=== PATIENT | male | born 1945 | race Caucasian/White ===

== ENCOUNTER 2020-02-21 13:03 | Inpatient (IN) ==
[2020-02-21] MEDS ORDERED: IOPAMIDOL 100 ML BOTTLE IV ONE (13:04)
[2020-02-21] MEDS ORDERED: 0.9 % SODIUM CHLORIDE 1,000 ML IV ONE (13:27)
[2020-02-21] MEDS ORDERED: ACETAMINOPHEN 325 MG TABLET PO ONE (13:27)
[2020-02-21] MEDS ORDERED: BENZONATATE 100 MG CAPSULE PO ONE (13:27)
[2020-02-21] MEDS ORDERED: PIPERACILLIN SODIUM/TAZOBACTAM 3.375 GM in DEXTROSE 5% IN WATER 50 ML IV ONE (13:34)
[2020-02-21] MEDS ORDERED: VANCOMYCIN 2,000 MG in 0.9 % SODIUM CHLORIDE 500 ML IV ONE (13:34)
--- NOTE | 2020-02-21 13:43 | Emergency Department Note ---
HPI General Chief complaint: Shortness of Breath/Dyspnea Stated complaint: UTI, sob, fever Time Seen by Provider: 02/21/20 13:05 Source: patient and family Mode of arrival: ambulatory Limitations: no limitations History of Present Illness HPI Narrative: Narrative: 74-year-old male patient referred to the emergency [facility] with suspected urosepsis. Days had a fever and 9 difficulty urinating since yesterday. However, upon arrival to the emergency department he mentions recent travel to [place] yesterday. His tells me he did the trip straight there and back in 1 day. He has had a nonproductive, dry cough coupled with fever and other symptoms. He has had significant nausea but no vomiting. He has also had significant diarrhea. He denies hematemesis or hematochezia. He denies any known exposure to COVID. He does have history of BPH and has had ongoing issues with urination in the past. He mentions the urge to urinate but is not able to pass urine. Patient does admit to a previous history of DVT in the past. He is also had a PE in the past. He is currently on Coumadin daily. He is unsure what his last INR has been because it is not been checked over the last 2 months. ROS: Admits to headaches. Denies shortness of breath. Denies retrosternal chest pain or palpitations. Admits to generalized weakness. Related Data Home Medications Medication Instructions Recorded Confirmed multivitamin with minerals 1 tab PO QDAY tab 11/06/18 02/21/20 Previous Rx's Medication Instructions Recorded warfarin 5 mg tablet 5 mg PO .COMPLEX #100 tab 05/31/19 tamsulosin 0.4 mg capsule 0.8 mg PO QDAY #180 cap 10/14/19 atorvastatin 20 mg tablet See Rx Instructions .ROUTE 12/12/19 .COMPLEX #90 unknown measurement unit code: tablet furosemide 20 mg tablet 20 mg PO BID #180 tab 12/12/19 metoprolol tartrate 25 mg tablet See Rx Instructions .ROUTE 12/12/19 .COMPLEX #180 tab potassium chloride 10 mEq 10 meq PO QDAY #90 cap 12/12/19 capsule,extended release Allergies Allergy/AdvReac Type Severity Reaction Status Date / Time naproxen [From Aleve] Allergy Unknown Unknoen Verified 02/21/20 13:03 Review of Systems ROS ROS Narrative: Narrative: PFSH Narrative Patient History Narrative: Narrative: Medical/Surgical/Family History All Active Problems (Updated 02/21/20 @ 19:03 by Hansel Valencia PA-C) Sepsis (Acute) UTI (urinary tract infection) (Acute) Fever (Acute) Weakness (Acute) UTI (urinary tract infection) (Acute) Bronchitis, acute (Chronic) Stasis ulcer (Chronic) DVT (deep venous thrombosis) (Chronic) Bilateral lower extremity edema (Chronic) Dizziness (Chronic) History of cigarette smoking (Chronic) Right thyroid nodule (Chronic) Fatigue (Chronic) Weight gain (Chronic) Chronic bronchitis (Chronic) 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) Varicose veins of right lower extremity with ulcer of thigh (Chronic) Lipodermatosclerosis (Chronic) History of Coumadin therapy (Chronic) Testosterone deficiency (Chronic) Nocturia (Chronic) Incomplete emptying of bladder (Chronic) Urinary incontinence (Chronic) Urinary frequency (Chronic) History of knee replacement (Chronic) Stomach ulcer (Chronic ~1974) History of blood clots (Chronic ~2005) Hyperlipidemia (Chronic) Erectile dysfunction (Chronic) Stasis dermatitis (Chronic) Pulmonary embolism (Chronic) Low testosterone (Chronic) Hypertension (Chronic ~2015) Lower leg edema (Chronic ~2009) Post-void dribbling (Chronic) BPH (benign prostatic hyperplasia) (Chronic) Medical History Bilateral lower extremity edema (Chronic) BPH (benign prostatic hyperplasia) (Chronic) Bronchitis, acute (Chronic) Chronic bronchitis (Chronic) Dizziness (Chronic) DVT (deep venous thrombosis) (Chronic) Erectile dysfunction (Chronic) Fatigue (Chronic) Fever (Acute) History of blood clots (Chronic ~2005) History of cigarette smoking (Chronic) History of Coumadin therapy (Chronic) Hyperlipidemia (Chronic) Hypertension (Chronic ~2015) Incomplete emptying of bladder (Chronic) Lipodermatosclerosis (Chronic) Low testosterone (Chronic) Lower leg edema (Chronic ~2009) Nocturia (Chronic) Post-void dribbling (Chronic) Pulmonary embolism (Chronic) Right thyroid nodule (Chronic) Stasis dermatitis (Chronic) Stasis ulcer (Chronic) Stomach ulcer (Chronic ~1974) Testosterone deficiency (Chronic) Urinary frequency (Chronic) Urinary incontinence (Chronic) UTI (urinary tract infection) (Acute) 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 He is in no acute respiratory distress. No nasal flaring. No accessory muscle use. He is speaking in full complete sentences.) Head Head: atraumatic and normocephalic Eye Eye: Present normal appearance, PERRL and EOMI; Absent scleral icterus and conjunctival injection ENT ENT: Present normal oropharynx and mucous membranes moist Neck Neck: Present trachea midline; Absent lymphadenopathy Chest Chest: Present symmetric chest wall rise Respiratory Respiratory: Present normal lung sounds bilaterally; Absent respiratory distress, wheezes, stridor, accessory muscle use and prolonged expiratory phase Cardiovascular Cardiovascular: Present regular rate and normal rhythm; Absent systolic murmur and diastolic murmur Adbominal Abdominal: Present soft; Absent distention, tenderness, guarding, rebound, rigidity, organomegaly and mass Extremities Extremities: Present full ROM, normal capillary refill and other (Patient is currently wearing compression socks.); Absent normal inspection, tenderness and pedal edema (No pitting edema identified.) Back Back: Absent CVA tenderness (R) and CVA tenderness (L) Neurological Neurological: Present alert and oriented X3 Psychiatric Psychiatric: Present normal affect and normal mood Skin Skin: Present warm, dry and normal color Course Course Course Narrative: Patient has symptoms of both possible urosepsis as well as possible COVID. We are going to order a bladder scan looking for retained urine. Based on the residual amount of retained urine will place a catheter. Patient is going to swab COVID. Single view chest x-ray was ordered. We are going to get screening blood work including getting a PT/INR. Patient meets SIRS criteria we are going to start both vancomycin 2000 mg and Zosyn 3.337 g IV now. I am going to treat his temperature with 975 mg of acetaminophen. Were also going to give him benzonatate 20 mg p.o. for his cough. Reevaluation(s) Reevaluation #1: A review of the patient's diagnostics show the following: CBC WBC 21.2, RBC 4.65, hemoglobin 13.5, hematocrit 41.8, platelets 163. PT 35.3, INR 3.5. Lactic acid 1.0. CMP chloride 95, creatinine 1.3, glucose 137, total bilirubin 1.1, all others normal limits. Procalcitonin 2.86. UA showing orange cloudy urine with specific gravity 1.025 and pH 5.5, positive proteinuria, positive nitrites, trace leukocyte Estrace, trace RBC. Portable chest x-ray read as a small region of either atelectasis or infiltrate developing in the lingular region. Upon reevaluation patient continues to lay semirecumbent on the emergency room gurney and is still feeling comfortable. After reviewing all the data I disc ussed these findings with my collaborating physician (Dr. Abdullahi). At this time he appears to have urosepsis. Dr. Abdullahi did recommend a CT scan of the patient's abdomen/pelvis with contrast to help rule out any other intra- abdominal pathology that may be causing his symptoms. Time: 15:44 Reevaluation #2: Upon reevaluation patient is resting comfortably on emergency room gurney. CT scan results did show a moderately large prostate and the development of hepatic cysts but no other acute findings. Afterward, I reached out to our hospitalist (Dr. Roque) and discussed the case with him. At this time Dr. Roque has consented to admit the patient to our facility for urosepsis. Time: 19:00 Vital Signs Vital signs: Vital Signs Temperature 103.5 F H 02/21/20 13:03 Pulse Rate 95 H 02/21/20 13:03 Respiratory Rate 24 H 02/21/20 13:03 Blood Pressure 133/69 02/21/20 13:03 Pulse Oximetry (%) 93 02/21/20 13:03 Temperature 100.5 F H 02/21/20 21:03 Pulse Rate 75 02/21/20 21:03 Respiratory Rate 20 07/31/20 21:03 Blood Pressure 153/66 02/21/20 21:03 Pulse Oximetry (%) 90 02/21/20 21:03 [facility] MDM Narrative Medical decision making narrative: Narrative: Lab Data Lab results reviewed: Yes I reviewed the patient's lab results. Result diagrams: 02/21/20 13:48 02/21/20 13:48 Labs: Lab Results 02/21/20 02/21/20 02/21/20 Range/Units 13:48 13:48 13:48 WBC 21.2 H (4.50-11.00) K/mcL RBC 4.65 (4.63-6.08) M/mcL Hgb 13.5 L (13.7-17.5) g/dL Hct 41.8 (40.1-51.0) % MCV 89.9 (80.0-100.0) fL MCH 29.0 (26.0-34.0) pg MCHC 32.3 (31.0-36.0) g/dL RDW 15.0 H (11.5-14.5) % Plt Count 163 (140-440) K/mcL MPV 11.8 H (7.4-10.4) fL Gran % 89.4 H (38.0-78.0) % Lymph % (Auto) 3.4 L (15.5-49.0) % [place] % (Auto) 6.5 (1.0-12.0) % Eos % (Auto) 0.6 (0.0-7.0) % Baso % (Auto) 0.1 (0.0-2.0) % Gran # 18.91 H (1.80-8.00) K/mcL Lymph # (Auto) 0.73 L (1.50-4.80) K/mcL [place] # (Auto) 1.38 H (0.10-0.90) K/mcL Eos # (Auto) 0.12 (0.00-0.70) K/mcL Baso # (Auto) 0.03 (0.00-0.30) K/mcL PT 35.3 H (11.9-14.5) sec INR 3.5 H (0.9-1.1) VBG Lactic Acid (0.5-2.0) mmol/L Sodium 134 (133-145) mmol/L Potassium 3.8 (3.3-5.1) mmol/L Chloride 95 L (96-108) mmol/L Carbon Dioxide 28 (22-30) mmol/L Anion Gap 11.0 (8-16) BUN 19 (8-23) mg/dl Creatinine 1.3 H (0.7-1.2) mg/dl GFR Calculation 55 Glucose 137 H (70-105) mg/dL Calcium 8.9 (8.6-10.4) mg/dl Total Bilirubin 1.1 H (0.0-1.0) mg/dL AST 20 (0-37) U/l ALT 21 (0-40) U/l Alkaline Phosphatase 102 (39-117) U/L Total Protein 7.3 (5.9-8.4) gm/dL Albumin 3.6 (3.2-5.2) gm/dL Globulin 3.7 (2.2-3.7) gm/dL Albumin/Globulin Ratio 1.0 (1.0-2.3) Lipase (7-60) U/L Procalcitonin (<0.10) ng/mL Urine Color Urine Appearance Urine pH (5.0-9.0) Ur Specific [place] (1.000-1.035) Urine Protein (NEG) mg/dL Urine Glucose (UA) (NEG) mg/dL Urine Ketones (NEG) mg/dL Urine Occult Blood (<0.03) mg/dL Urine Nitrate (NEG) Urine Bilirubin (NEG) mg/dL Urine Urobilinogen (NEG) mg/dL Ur Leukocyte Esterase (NEG) /uL Urine RBC (0-1) /hpf Urine WBC (0-4) /hpf Ur Squamous Epith Cells (0-4) /hpf Urine Bacteria (0) /hpf Urine Mucus (0) /hpf Ur Culture Indicated? 02/21/20 02/21/20 02/21/20 Range/Units 13:48 13:48 13:48 WBC (4.50-11.00) K/mcL RBC (4.63-6.08) M/mcL Hgb (13.7-17.5) g/dL Hct (40.1-51.0) % MCV (80.0-100.0) fL MCH (26.0-34.0) pg MCHC (31.0-36.0) g/dL RDW (11.5-14.5) % Plt Count (140-440) K/mcL MPV (7.4-10.4) fL Gran % (38.0-78.0) % Lymph % (Auto) (15.5-49.0) % [place] % (Auto) (1.0-12.0) % Eos % (Auto) (0.0-7.0) % Baso % (Auto) (0.0-2.0) % Gran # (1.80-8.00) K/mcL Lymph # (Auto) (1.50-4.80) K/mcL [place] # (Auto) (0.10-0.90) K/mcL Eos # (Auto) (0.00-0.70) K/mcL Baso # (Auto) (0.00-0.30) K/mcL PT (11.9-14.5) sec INR (0.9-1.1) VBG Lactic Acid 1.0 (0.5-2.0) mmol/L Sodium (133-145) mmol/L Potassium (3.3-5.1) mmol/L Chloride (96-108) mmol/L Carbon Dioxide (22-30) mmol/L Anion Gap (8-16) BUN (8-23) mg/dl Creatinine (0.7-1.2) mg/dl GFR Calculation Glucose (70-105) mg/dL Calcium (8.6-10.4) mg/dl Total Bilirubin (0.0-1.0) mg/dL AST (0-37) U/l ALT (0-40) U/l Alkaline Phosphatase (39-117) U/L Total Protein (5.9-8.4) gm/dL Albumin (3.2-5.2) gm/dL Globulin (2.2-3.7) gm/dL Albumin/Globulin Ratio (1.0-2.3) Lipase 14 (7-60) U/L Procalcitonin 2.86 (<0.10) ng/mL Urine Color Urine Appearance Urine pH (5.0-9.0) Ur Specific [place] (1.000-1.035) Urine Protein (NEG) mg/dL Urine Glucose (UA) (NEG) mg/dL Urine Ketones (NEG) mg/dL Urine Occult Blood (<0.03) mg/dL Urine Nitrate (NEG) Urine Bilirubin (NEG) mg/dL Urine Urobilinogen (NEG) mg/dL Ur Leukocyte Esterase (NEG) /uL Urine RBC (0-1) /hpf Urine WBC (0-4) /hpf Ur Squamous Epith Cells (0-4) /hpf Urine Bacteria (0) /hpf Urine Mucus (0) /hpf Ur Culture Indicated? 02/21/20 Range/Units 18:00 WBC (4.50-11.00) K/mcL RBC (4.63-6.08) M/mcL Hgb (13.7-17.5) g/dL Hct (40.1-51.0) % MCV (80.0-100.0) fL MCH (26.0-34.0) pg MCHC (31.0-36.0) g/dL RDW (11.5-14.5) % Plt Count (140-440) K/mcL MPV (7.4-10.4) fL Gran % (38.0-78.0) % Lymph % (Auto) (15.5-49.0) % [place] % (Auto) (1.0-12.0) % Eos % (Auto) (0.0-7.0) % Baso % (Auto) (0.0-2.0) % Gran # (1.80-8.00) K/mcL Lymph # (Auto) (1.50-4.80) K/mcL [place] # (Auto) (0.10-0.90) K/mcL Eos # (Auto) (0.00-0.70) K/mcL Baso # (Auto) (0.00-0.30) K/mcL PT (11.9-14.5) sec INR (0.9-1.1) VBG Lactic Acid (0.5-2.0) mmol/L Sodium (133-145) mmol/L Potassium (3.3-5.1) mmol/L Chloride (96-108) mmol/L Carbon Dioxide (22-30) mmol/L Anion Gap (8-16) BUN (8-23) mg/dl Creatinine (0.7-1.2) mg/dl GFR Calculation Glucose (70-105) mg/dL Calcium (8.6-10.4) mg/dl Total Bilirubin (0.0-1.0) mg/dL AST (0-37) U/l ALT (0-40) U/l Alkaline Phosphatase (39-117) U/L Total Protein (5.9-8.4) gm/dL Albumin (3.2-5.2) gm/dL Globulin (2.2-3.7) gm/dL Albumin/Globulin Ratio (1.0-2.3) Lipase (7-60) U/L Procalcitonin (<0.10) ng/mL Urine Color Yellow Urine Appearance Hazy Urine pH 6.0 (5.0-9.0) Ur Specific [place] 1.026 (1.000-1.035) Urine Protein 30 A (NEG) mg/dL Urine Glucose (UA) Negative (NEG) mg/dL Urine Ketones Neg (NEG) mg/dL Urine Occult Blood 0.03 A (<0.03) mg/dL Urine Nitrate Pos A (NEG) Urine Bilirubin Neg (NEG) mg/dL Urine Urobilinogen 4.0 A (NEG) mg/dL Ur Leukocyte Esterase 250 A (NEG) /uL Urine RBC 1 (0-1) /hpf Urine WBC 53 H (0-4) /hpf Ur Squamous Epith Cells 1 (0-4) /hpf Urine Bacteria Many A (0) /hpf Urine Mucus Mod (0) /hpf Ur Culture Indicated? Yes Radiology Data Radiology results reviewed: Yes I reviewed the patient's radiology results. Radiology results narrative: Ordering Physician: Hansel Valencia PA-C Date of Service: 02/21/20 Procedure(s): XR chest 1V portable Accession Number(s): [id number] CLINICAL INFORMATION: Fever, cough, mild short of breath x24 hours. COMPARISON: Chest CT 12/12/2018. FINDINGS: Small lingular infiltrate or atelectasis developing. Heart size, mediastinum and pulmonary vessels are normal. No effusions IMPRESSION: Small region of atelectasis or infiltrate in the lingular region - new. Ordering Physician: Hansel Valencia PA-C Date of Service: 02/21/20 Procedure(s): CT abdomen pelvis w con Accession Number(s): [id number] CLINICAL INFORMATION: Fever elevated white blood cell count nausea and diarrhea COMPARISON: Chest CT 12/12/2018 TECHNIQUE: Following enteric contrast, 80 cc of Isovue-370 were injected intravenously, and 60 seconds later, 0.625 mm helical slices were obtained from the mid heart through the subtrochanteric regions. Following reconstruction, 2.5 mm sagittal, coronal and axial reformatted images were processed and reviewed at bone, lung and soft tissue windows. Five minutes later, 0.625 mm helical slices were obtained from the mid heart through the kidneys and viewed at soft tissue windows.The exam was performed using radiation dose optimization techniques including, but not limited to, automated exposure control, adjustment of the mA and/or kV according to patient size and use of iterative reconstruction technique. FINDINGS: The lung bases show only minimal scattered scarring and/or atelectasis. No effusion. The visualized heart is normal. Abdominal images show new bilobed 2.6 cm low-attenuation lesion in the subdiaphragmatic posterior segment right hepatic lobe, 1.4 cm low-attenuation lesion laterally in the right hepatic lobe laterally in the right hepatic lobe and a 2.1 cm subcapsular lesion in the right hepatic lobe also new from the previous CT these are new from the 2019 CT suspect there nearly cysts however. Gallbladder and bile ducts are normal. Both kidneys, adrenal glands, spleen, pancreas are normal. The aorta is normal in diameter. The estimated celiac, common origin - congenital variant. Aortic branches are unremarkable otherwise. Pelvic images show moderate prostate enlargement 6.5 x 7.5 cm with a 12 mm from the tissue from the prostate base extending to the urinary bladder base. There urinary bladder is otherwise grossly normal. Seminal vesicles are normal. Few sigmoid diverticula appreciated no evidence of diverticulitis. The remaining colon small bowel stomach are normal. There is a 6 cm paraumbilical hernia containing only mesenteric fat. Bone windows show no osseous abnormality IMPRESSION: 1. No definite cause identified for fever. 2. Scattered low-attenuation lesions within the liver were not seen on comparison CT over one year prior. There is still likely cysts. Suggest liver ultrasound to confirm 3. Moderate prostate enlargement 4. 6 cm paraumbilical herniation containing only mesenteric fat. Interpreted and Authenticated by: Iraj Smith 02/21/20 Discharge Plan Patient/Caregiver Discharge Instructions Pt seen by DOCTOR OF OSTEOPATHY/PA only: Yes Clinical Impression: Sepsis Qualifiers: Sepsis type: sepsis due to unspecified organism Sepsis acute organ dysfunction status: unspecified Qualified Code(s): A41.9 - Sepsis, unspecified organism BPH (benign prostatic hyperplasia) Qualifiers: Lower urinary tract symptom presence: symptoms present Lower urinary tract symptom detail: unspecified Qualified Code(s): N40.1 - Benign prostatic hyperplasia with lower urinary tract symptoms UTI (urinary tract infection) Qualifiers: Urinary tract infection type: site unspecified Hematuria presence: without hematuria Qualified Code(s): N39.0 - Urinary tract infection, site not specified Patient Disposition: Xfer As Inpt ([facility]) Condition: Fair Discharge Date/Time: 02/21/20 21:03
--- NOTE | 2020-02-21 14:49 | XRay Report ---
CLINICAL INFORMATION: Fever, cough, mild short of breath x24 hours. COMPARISON: Chest CT 12/12/2018. FINDINGS: Small lingular infiltrate or atelectasis developing. Heart size, mediastinum and pulmonary vessels are normal. No effusions IMPRESSION: Small region of atelectasis or infiltrate in the lingular region - new. Interpreted and Authenticated by: Iraj Smith 02/21/20
[2020-02-21 14:54] LABS: ALT/SGPT 21 U/l (0-40); AST/SGOT 20 U/l (0-37); Albumin 3.6 gm/dL (3.2-5.2); Alkaline Phosphatase 102 U/L (39-117); Bilirubin,Total 1.1 mg/dL (0.0-1.0); Blood Urea Nitrogen 19 mg/dl (8-23); Calcium 8.9 mg/dl (8.6-10.4); Carbon Dioxide 28 mmol/L (22-30); Chloride 95 mmol/L (96-108); Globulin 3.7 gm/dL (2.2-3.7); Glomerular Filtration Rate 55; Glucose 137 mg/dL (70-105)
[2020-02-21 14:57] LABS: INR 3.5 (0.9-1.1); Prothrombin Time 35.3 sec (11.9-14.5)
[2020-02-21 15:10] LABS: Basophils # (Auto) 0.03 K/mcL (0.00-0.30); Basophils % (Auto) 0.1 % (0.0-2.0); Eosinophils # (Auto) 0.12 K/mcL (0.00-0.70); Eosinophils % (Auto) 0.6 % (0.0-7.0); Granulocytes % (Auto) 89.4 % (38.0-78.0); Hematocrit 41.8 % (40.1-51.0); Hemoglobin 13.5 g/dL (13.7-17.5); Lymphocytes # (Auto) 0.73 K/mcL (1.50-4.80); Lymphocytes % (Auto) 3.4 % (15.5-49.0); Mean Cell Volume 89.9 fL (80.0-100.0); Mean Corpuscular HGB Conc 32.3 g/dL (31.0-36.0); Mean Platelet Volume 11.8 fL (7.4-10.4); Monocytes # (Auto) 1.38 K/mcL (0.10-0.90); Monocytes % (Auto) 6.5 % (1.0-12.0); Platelet Count 163 K/mcL (140-440); RBC 4.65 M/mcL (4.63-6.08); WBC 21.2 K/mcL (4.50-11.00)
--- NOTE | 2020-02-21 18:14 | Cat Scan Report ---
CLINICAL INFORMATION: Fever elevated white blood cell count nausea and diarrhea COMPARISON: Chest CT 12/12/2018 TECHNIQUE: Following enteric contrast, 80 cc of Isovue-370 were injected intravenously, and 60 seconds later, 0.625 mm helical slices were obtained from the mid heart through the subtrochanteric regions. Following reconstruction, 2.5 mm sagittal, coronal and axial reformatted images were processed and reviewed at bone, lung and soft tissue windows. Five minutes later, 0.625 mm helical slices were obtained from the mid heart through the kidneys and viewed at soft tissue windows.The exam was performed using radiation dose optimization techniques including, but not limited to, automated exposure control, adjustment of the mA and/or kV according to patient size and use of iterative reconstruction technique. FINDINGS: The lung bases show only minimal scattered scarring and/or atelectasis. No effusion. The visualized heart is normal. Abdominal images show new bilobed 2.6 cm low-attenuation lesion in the subdiaphragmatic posterior segment right hepatic lobe, 1.4 cm low-attenuation lesion laterally in the right hepatic lobe laterally in the right hepatic lobe and a 2.1 cm subcapsular lesion in the right hepatic lobe also new from the previous CT these are new from the 2019 CT suspect there nearly cysts however. Gallbladder and bile ducts are normal. Both kidneys, adrenal glands, spleen, pancreas are normal. The aorta is normal in diameter. The estimated celiac, common origin - congenital variant. Aortic branches are unremarkable otherwise. Pelvic images show moderate prostate enlargement 6.5 x 7.5 cm with a 12 mm from the tissue from the prostate base extending to the urinary bladder base. There urinary bladder is otherwise grossly normal. Seminal vesicles are normal. Few sigmoid diverticula appreciated no evidence of diverticulitis. The remaining colon small bowel stomach are normal. There is a 6 cm paraumbilical hernia containing only mesenteric fat. Bone windows show no osseous abnormality IMPRESSION: 1. No definite cause identified for fever. 2. Scattered low-attenuation lesions within the liver were not seen on comparison CT over one year prior. There is still likely cysts. Suggest liver ultrasound to confirm 3. Moderate prostate enlargement 4. 6 cm paraumbilical herniation containing only mesenteric fat. Interpreted and Authenticated by: Iraj Smith 02/21/20
[2020-02-21 18:42] LABS: Appearance,Urine HAZY; Bacteria,Urine MANY /hpf (0); Bilirubin,Urine NEG (NEG); Color,Urine YELLOW; Culture Indicated,Urine YES; Glucose,Urine (UA) NEGATIVE (NEG); Ketones,Urine NEG (NEG); Leukocyte Esterase,Urine 250 /uL (NEG); Mucus,Urine MOD /hpf (0); Nitrate,Urine POS (NEG); Protein,Urine 30 mg/dL (NEG); Specific Gravity,Urine 1.026 (1.000-1.035); Urine Blood 0.03 mg/dL (<0.03); Urine RBC 1 /hpf (0-1); Urine Squamous Epithelial Cell 1 /hpf (0-4); Urine WBC 53 /hpf (0-4)
--- NOTE | 2020-02-21 18:49 | Internal Med History&Physical ---
HPI History of Present Illness Patient information: Note initiated : 02/21/20 at 6:49 pm Service Date, if different from initiated Date: [] Patient: Gab Solitario a 74 y/o M admitted on for UTI, sob, fever. Chief Complaint: History of present illness: Mr. Solitario is a 74 year old M presents from minor care for symptoms of weakness and fever 103.5 along with shaking chills. He has associated difficulty voiding. Symptoms have been progressing over the last couple of days. No associated diarrhea, headache neck stiffness or photophobia. He does endorse to cough. Quit smoking recently. Denies exposure to sick contacts. Initial workup revealed WBC 23K, CT abd pelvis- unremarkable except for enlarged prostate. UA pyuria, nitrites. COVID pending, INR 3.5 on Coumadin Patient was promptly started on vanco/zosyn in ED after cultures were drawn. Hospitalist service consulted for admission At the time evaluation patient is anxious and short of breath. Endorses to shaking chills. Symptoms have been ongoing for 48 hours. Endorses history as above. Review of systems 10 point review system was performed and is negative except for what discussed above [facility] Medical History Bilateral lower extremity edema (Chronic) BPH (benign prostatic hyperplasia) (Chronic) Bronchitis, acute (Chronic) Chronic bronchitis (Chronic) Dizziness (Chronic) DVT (deep venous thrombosis) (Chronic) Erectile dysfunction (Chronic) Fatigue (Chronic) Fever (Acute) History of blood clots (Chronic ~2005) History of cigarette smoking (Chronic) History of Coumadin therapy (Chronic) Hyperlipidemia (Chronic) Hypertension (Chronic ~2015) Incomplete emptying of bladder (Chronic) Lipodermatosclerosis (Chronic) Low testosterone (Chronic) Lower leg edema (Chronic ~2009) Nocturia (Chronic) Post-void dribbling (Chronic) Pulmonary embolism (Chronic) Right thyroid nodule (Chronic) Stasis dermatitis (Chronic) Stasis ulcer (Chronic) Stomach ulcer (Chronic ~1974) Testosterone deficiency (Chronic) Urinary frequency (Chronic) Urinary incontinence (Chronic) UTI (urinary tract infection) (Acute) 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) Varicose veins of right lower extremity with ulcer of thigh (Chronic) Weakness (Acute) Weight gain (Chronic) Surgical History History of knee replacement (Chronic) 2013 & 2015 Family History Father Hypertension Social History (Updated 10/14/19 @ 08:26 by Napoleon Bailon MD) household members: spouse marital status: occupational exposures/hazards: No physical activity: walking frequency: 1-2 times per week smoking status: Former smoker alcohol intake frequency: 0-2 drinks per day substance use type: does not use seatbelt use: always MEDS/ALLERGIES Home Medications and Allergies Home Medications Medication Instructions Recorded Confirmed Type multivitamin with minerals 1 tab PO QDAY tab 11/06/18 02/21/20 History warfarin 5 mg tablet 5 mg PO .COMPLEX #100 tab 05/31/19 02/21/20 Rx tamsulosin 0.4 mg capsule 0.8 mg PO QDAY #180 cap 10/14/19 02/21/20 Rx atorvastatin 20 mg tablet See Rx Instructions .ROUTE 12/12/19 02/21/20 Rx .COMPLEX #90 unknown measurement unit code: tablet furosemide 20 mg tablet 20 mg PO BID #180 tab 12/12/19 02/21/20 Rx metoprolol tartrate 25 mg tablet See Rx Instructions .ROUTE 12/12/19 02/21/20 Rx .COMPLEX #180 tab potassium chloride 10 mEq 10 meq PO QDAY #90 cap 12/12/19 02/21/20 Rx capsule,extended release Allergies Allergy/AdvReac Type Severity Reaction Status Date / Time naproxen [From Aleve] Allergy Unknown Unknoen Verified 02/21/20 13:03 EXAM Constitutional Vitals: Temp Pulse Resp BP Pulse Ox 100.5 F H 71 21 155/69 95 02/21/20 15:05 02/21/20 18:31 02/21/20 18:31 02/21/20 18:31 02/21/20 18:31 Head normocephalic Oral cavity moist No ear nose discharge Eye movement symmetrical Neck supple no lymphadenopathy S1-S2 regular Minimally labored breathing Nondistended nontender abdomen Lower extremity no cyanosis clubbing or joint swelling Skin no suspicious lesion Psych anxious but alert cooperative Neuro normal higher function DATA Data Completed and Pending Labs on day of discharge: Labs from last 24 hours 02/21/20 02/21/20 02/21/20 18:02 18:00 13:48 WBC RBC Hgb Hct MCV MCH MCHC RDW Plt Count MPV Gran % Lymph % (Auto) [place] % (Auto) Eos % (Auto) Baso % (Auto) Gran # Lymph # (Auto) [place] # (Auto) Eos # (Auto) Baso # (Auto) PT INR VBG Lactic Acid Sodium Potassium Chloride Carbon Dioxide Anion Gap BUN Creatinine GFR Calculation Glucose Calcium Total Bilirubin AST ALT Alkaline Phosphatase Total Protein Albumin Globulin Albumin/Globulin Ratio Lipase 14 Procalcitonin Urine Color Yellow Urine Appearance Hazy Urine pH 6.0 Ur Specific [place] 1.026 Urine Protein 30 A Urine Glucose (UA) Negative Urine Ketones Neg Urine Occult Blood 0.03 A Urine Nitrate Pos A Urine Bilirubin Neg Urine Urobilinogen 4.0 A Ur Leukocyte Esterase 250 A Urine RBC 1 Urine WBC 53 H Ur Squamous Epith Cells 1 Urine Bacteria Many A Urine Mucus Mod Ur Culture Indicated? Yes SARS-CoV-2 (PCR) Pending 02/21/20 02/21/20 02/21/20 13:48 13:48 13:48 WBC RBC Hgb Hct MCV MCH MCHC RDW Plt Count MPV Gran % Lymph % (Auto) [place] % (Auto) Eos % (Auto) Baso % (Auto) Gran # Lymph # (Auto) [place] # (Auto) Eos # (Auto) Baso # (Auto) PT INR VBG Lactic Acid 1.0 Sodium 134 Potassium 3.8 Chloride 95 L Carbon Dioxide 28 Anion Gap 11.0 BUN 19 Creatinine 1.3 H GFR Calculation 55 Glucose 137 H Calcium 8.9 Total Bilirubin 1.1 H AST 20 ALT 21 Alkaline Phosphatase 102 Total Protein 7.3 Albumin 3.6 Globulin 3.7 Albumin/Globulin Ratio 1.0 Lipase Procalcitonin 2.86 Urine Color Urine Appearance Urine pH Ur Specific [place] Urine Protein Urine Glucose (UA) Urine Ketones Urine Occult Blood Urine Nitrate Urine Bilirubin Urine Urobilinogen Ur Leukocyte Esterase Urine RBC Urine WBC Ur Squamous Epith Cells Urine Bacteria Urine Mucus Ur Culture Indicated? SARS-CoV-2 (PCR) 02/21/20 02/21/20 13:48 13:48 WBC 21.2 H RBC 4.65 Hgb 13.5 L Hct 41.8 MCV 89.9 MCH 29.0 MCHC 32.3 RDW 15.0 H Plt Count 163 MPV 11.8 H Gran % 89.4 H Lymph % (Auto) 3.4 L [place] % (Auto) 6.5 Eos % (Auto) 0.6 Baso % (Auto) 0.1 Gran # 18.91 H Lymph # (Auto) 0.73 L [place] # (Auto) 1.38 H Eos # (Auto) 0.12 Baso # (Auto) 0.03 PT 35.3 H INR 3.5 H VBG Lactic Acid Sodium Potassium Chloride Carbon Dioxide Anion Gap BUN Creatinine GFR Calculation Glucose Calcium Total Bilirubin AST ALT Alkaline Phosphatase Total Protein Albumin Globulin Albumin/Globulin Ratio Lipase Procalcitonin Urine Color Urine Appearance Urine pH Ur Specific [place] Urine Protein Urine Glucose (UA) Urine Ketones Urine Occult Blood Urine Nitrate Urine Bilirubin Urine Urobilinogen Ur Leukocyte Esterase Urine RBC Urine WBC Ur Squamous Epith Cells Urine Bacteria Urine Mucus Ur Culture Indicated? SARS-CoV-2 (PCR) A/P Narrative A/P Narrative: * Complicated UTI-no evidence of obstructive uropathy on imaging. Continue antibiotic coverage. De-escalate based on sensitivities. * Sepsis with endorgan dysfunction-white count over 20,000. Continue management per guidelines * h/o DVT- coumadin. INR 3.5 * BPH On tamsulosin * HTN- Hold metoprolol until sepsis resolves * HLD- Statin * Prophylaxis- coumadin * Inpatient admission * Pancultures * Broad antibiotics * Anticoagulation Coumadin dosing based on INR * Pre-existing medical condition management home meds except for antihypertensives Time Spent With Patient Time: Total time spent is greater than 50% in coordination of care (as documented) at patient's floor/unit and/or counseling patient:
[2020-02-21] MEDS ORDERED: ONDANSETRON 4 MG/2 ML VIAL IV PRN (20:58)
[2020-02-21] MEDS ORDERED: MELATONIN 3 MG TABLET PO PRN (20:58)
[2020-02-21] MEDS ORDERED: BISACODYL 10 MG SUPP.RECT PR PRN (20:58)
[2020-02-21] MEDS ORDERED: POLYETHYLENE GLYCOL 3350 17 GM PACKET PO PRN (20:58)
[2020-02-21] MEDS ORDERED: ONDANSETRON 4 MG ODT TABLET SL PRN (20:58)
[2020-02-21] MEDS ORDERED: NOREPINEPHRINE BITARTRATE 16 MG in 0.9 % SODIUM CHLORIDE 234 ML IV PRN (20:58)
[2020-02-21] MEDS: SENNOSIDES/DOCUSATE SODIUM 1 TAB TABLET PO SCH (21:19)
[2020-02-21] MEDS: DOCUSATE SODIUM 100 MG CAPSULE PO SCH (21:20)
[2020-02-21] MEDS: HEPARIN 5,000 UNIT/ML VIAL SQ SCH (21:59)
[2020-02-21] MEDS: 0.9 % SODIUM CHLORIDE 1,000 ML IV SCH (21:59)
[2020-02-21] MEDS: 0.9 % SODIUM CHLORIDE 10 ML SYRINGE IV SCH (21:59)
[2020-02-21] MEDS: cefTRIAXone 2 GM in DEXTROSE 5% IN WATER 50 ML IV SCH (21:59)
[2020-02-21] MEDS ORDERED: cefTRIAXone 2 GM VIAL ONE (22:00)
[2020-02-22] MEDS: 0.9 % SODIUM CHLORIDE 10 ML SYRINGE IV SCH ×3 (05:23→20:37)
[2020-02-22 06:50] LABS: Hematocrit 39.9 % (40.1-51.0); Hemoglobin 12.8 g/dL (13.7-17.5); Mean Cell Volume 90.9 fL (80.0-100.0); Mean Corpuscular HGB Conc 32.1 g/dL (31.0-36.0); Mean Platelet Volume 11.6 fL (7.4-10.4); Platelet Count 160 K/mcL (140-440); RBC 4.39 M/mcL (4.63-6.08); Red Cell Distribution Width 14.6 % (11.5-14.5); WBC 15.2 K/mcL (4.50-11.00)
[2020-02-22 07:58] LABS: ALT/SGPT 16 U/l (0-40); AST/SGOT 14 U/l (0-37); Albumin/Globulin Ratio 0.8 (1.0-2.3); Alkaline Phosphatase 88 U/L (39-117); Bilirubin,Direct < 0.2 mg/dL (0.0-0.3); Bilirubin,Total 0.6 mg/dL (0.0-1.0); Blood Urea Nitrogen 15 mg/dl (8-23); Calcium 8.2 mg/dl (8.6-10.4); Carbon Dioxide 24 mmol/L (22-30); Chloride 101 mmol/L (96-108); Globulin 3.7 gm/dL (2.2-3.7); Glomerular Filtration Rate 75; Glucose 113 mg/dL (70-105); Lactate Dehydrogenase 200 U/L (94-250); Triglycerides 88 mg/dl (<150); Uric Acid 6.2 mg/dL (2.5-8.0)
[2020-02-22 08:06] LABS: Phosphorous 2.2 mg/dL (2.7-4.5)
[2020-02-22 08:21] LABS: Band Neutrophils % 2 % (0-10); Lymphocytes % 4 % (15-49); Monocytes % (Manual) 3 % (1-12); Platelet Estimate NORMAL (NORMAL); RBC Morphology NORMAL (NORMAL); Segmented Neutrophils % 91 % (38-78)
--- NOTE | 2020-02-22 09:58 | Internal Med Progress Note ---
SUBJECTIVE Subjective Patient information: Note initiated : 02/22/20 at 9:55 am Service Date, if different from initiated Date: [] Patient: Gab Solitario a 74 y/o M admitted on 02/21/20 for UTI, sob, fever. Chief Complaint: [] History of present illness: Mr. Solitario is a 74 year old M presents from minor care for symptoms of weakness and fever 103.5 along with shaking chills. He has associated difficulty voiding. Symptoms have been progressing over the last couple of days. No associated diarrhea, headache neck stiffness or photophobia. He does endorse to cough. Quit smoking recently. Denies exposure to sick contacts. Initial workup revealed WBC 23K, CT abd pelvis- unremarkable except for enlarged prostate. UA pyuria, nitrites. COVID pending, INR 3.5 on Coumadin Patient was promptly started on vanco/zosyn in ED after cultures were drawn. Hospitalist service consulted for admission At the time evaluation patient is anxious and short of breath. Endorses to shaking chills. Symptoms have been ongoing for 48 hours. Endorses history as above. 02/21-patient clinically improved however experiencing diarrhea. Feels bloated. White count improved to 15,000 from 21. No overnight fever chills. Improving endorgan dysfunction with improved creatinine down from 1.3-1 Constitutional Vitals: Vital Signs Temp Pulse Resp BP Pulse Ox 97.3 F 63 25 H 145/70 96 02/22/20 07:02 02/22/20 08:02 02/22/20 09:07 02/22/20 09:01 02/22/20 08:02 Period Temp Pulse Resp BP Sys/Perez Pulse Ox Last 24 Hr 97.3 F-103.5 F 63-138 11-28 122-170/42-93 90-99 Intake and Output 02/21/20 02/22/20 02/22/20 21:59 05:59 13:59 Intake Total 1550 200 Output Total 200 400 200 Balance 1350 -200 -200 Weight 130 kg Morbidly obese Alert and oriented Minimal anxiety Distended abdomen No lymphedema Intake & Output: Intake & Output 02/21/20 02/22/20 02/22/20 21:59 05:59 13:59 Intake Total 1550 200 Output Total 200 400 200 Balance 1350 -200 -200 Weight 130 kg Intake: IV 1550 Sodium Chloride 0.9% 1,000 ml @ 1000 Wide Open IV BOLUS ONE Rx#: [id number] Zosyn 3.375 gm In Dextrose 5% 50 in Water 50 ml @ 100 mls/hr IV ONCE ONE Rx#:[id number] Vancomycin 2,000 mg In Sodium 500 Chloride 0.9% 500 ml @ 250 mls/ hr IV ONCE ONE Rx#:[id number] Oral 200 Output: Void Amount 250 200 Stool 200 150 Other: Urine Appearance Clear Clear Urine Color Light Stacie Dark Stacie Urine Odor Normal # Bowel Movements 1 1 OBJ DATA Labs CBC & Chem 7: 02/22/20 04:48 02/22/20 04:48 Labs: Abnormal Lab Results 02/22/20 02/22/20 02/21/20 04:48 04:48 18:00 WBC 15.2 H RBC 4.39 L Hgb 12.8 L Hct 39.9 L RDW 14.6 H MPV 11.6 H Gran % Lymph % (Auto) Gran # Lymph # (Auto) [place] # (Auto) Seg Neutrophils % 91 H Lymphocytes % 4 L PT INR Chloride Creatinine Glucose 113 H Calcium 8.2 L Phosphorus 2.2 L Total Bilirubin Albumin 3.0 L Albumin/Globulin Ratio 0.8 L Urine Protein 30 A Urine Occult Blood 0.03 A Urine Nitrate Pos A Urine Urobilinogen 4.0 A Ur Leukocyte Esterase 250 A Urine WBC 53 H Urine Bacteria Many A 02/21/20 02/21/20 02/21/20 13:48 13:48 13:48 WBC 21.2 H RBC Hgb 13.5 L Hct RDW 15.0 H MPV 11.8 H Gran % 89.4 H Lymph % (Auto) 3.4 L Gran # 18.91 H Lymph # (Auto) 0.73 L [place] # (Auto) 1.38 H Seg Neutrophils % Lymphocytes % PT 35.3 H INR 3.5 H Chloride 95 L Creatinine 1.3 H Glucose 137 H Calcium Phosphorus Total Bilirubin 1.1 H Albumin Albumin/Globulin Ratio Urine Protein Urine Occult Blood Urine Nitrate Urine Urobilinogen Ur Leukocyte Esterase Urine WBC Urine Bacteria Meds: Medications Acetaminophen (Tylenol) 650 mg PO Q4-6HP PRN; Protocol PRN Reason: Per Pain Protocol/Fever > 101 Bisacodyl (Dulcolax) 10 mg IN Q2-3DAYS PRN PRN Reason: Constipation Docusate Sodium (Colace) 100 mg PO BID [facility] Last Admin: 02/21/20 21:20 Dose: Not Given Documented by: Heparin Sodium (Porcine) (Heparin) 5,000 unit SQ Q12 [facility] Last Admin: 02/21/20 21:59 Dose: 5,000 unit Documented by: Ceftriaxone Sodium 2 gm/ (Dextrose) 50 mls @ 100 mls/hr IV Q24H [facility]; Protocol Last Admin: 02/21/20 21:59 Dose: Not Given Documented by: Sodium Chloride (Sodium Chloride 0.9%) 1,000 mls @ 50 mls/hr IV .Q20H [facility] Stop: 02/24/20 08:57 Last Admin: 02/21/20 21:59 Dose: 50 mls/hr Documented by: Norepinephrine Bitartrate 16 (mg/ Sodium Chloride) 250 mls @ 9.375 mls/hr IV Q24H PRN; Protocol PRN Reason: map<65 Iron Carb/Multivit/[place]/Folic Acid (Multivitamin W/Minerals) 1 tab PO DAILY [facility] Melatonin (Melatonin 3mg Tablet) 3 mg PO HSP PRN PRN Reason: Insomnia Ondansetron HCl (Zofran Odt) 4 mg SL Q4-6HP PRN; Protocol PRN Reason: Nausea And Vomiting Ondansetron HCl (Zofran) 4 mg IV Q4-6HP PRN; Protocol PRN Reason: Nausea And Vomiting Polyethylene Glycol (Miralax) 17 gm PO DAILYP PRN PRN Reason: Constipation Senna/Docusate Sodium (Senna Plus Tablet) 1 tab PO HS [facility] Last Admin: 02/21/20 21:19 Dose: Not Given Documented by: Sodium Chloride (Saline Flush) 10 ml IV Q8 [facility] Last Admin: 02/22/20 05:23 Dose: Not Given Documented by: A/P Narrative A/P Narrative: * Complicated UTI-no evidence of obstructive uropathy on imaging. Continue antibiotic coverage. De-escalate based on sensitivities. * Sepsis with endorgan dysfunction-now improving with downtrending white count and improving endorgan dysfunction * Acute kidney injury-creatinine improved from 1.3-1. * h/o DVT- coumadin. INR therapeutic * BPH On tamsulosin * HTN-held metoprolol until sepsis resolves * HLD- Statin * Prophylaxis- coumadin * Antibiotic coverage * De-escalate based on culture sensitivities * PT OT nutrition support * Anticoagulation Coumadin dosing based on INR * Pre-existing medical condition management home meds except for an tihypertensives Time Spent With Patient Time: Total time spent is greater than 50% in coordination of care (as documented) at patient's floor/unit and/or counseling patient: Total time spent with greater than 50% in coordination of care (as documented) at patient's floor/unit and/or counseling patient:: Greater than 35 minutes QUALITY VTE Deep Vein Thrombosis/Pulmonary Embolism Present on Admission: No
[2020-02-22] MEDS: DOCUSATE SODIUM 100 MG CAPSULE PO SCH ×2 (10:12→20:37)
[2020-02-22] MEDS: HEPARIN 5,000 UNIT/ML VIAL SQ SCH ×2 (10:13→21:08)
[2020-02-22] MEDS: MULTIVIT,THER IRON,CA,FA & MIN 1 TABLET PO SCH (10:13)
[2020-02-22] MEDS ORDERED: METOPROLOL TARTRATE 25 MG TABLET PO ONE (13:10)
[2020-02-22] MEDS: cefTRIAXone 2 GM in DEXTROSE 5% IN WATER 50 ML IV SCH (14:26)
[2020-02-22] MEDS ORDERED: hydrALAZINE 20 MG/ML VIAL IV PRN (16:24)
[2020-02-22] MEDS: 0.9 % SODIUM CHLORIDE 1,000 ML IV SCH (17:35)
[2020-02-22] MEDS: SENNOSIDES/DOCUSATE SODIUM 1 TAB TABLET PO SCH (20:37)
[2020-02-22] MEDS: ACETAMINOPHEN 325 MG TABLET PO PRN (21:09)
[2020-02-23] MEDS: 0.9 % SODIUM CHLORIDE 10 ML SYRINGE IV SCH ×3 (05:48→23:34)
[2020-02-23 06:20] LABS: Hematocrit 42.4 % (40.1-51.0); Hemoglobin 13.3 g/dL (13.7-17.5); Mean Cell Volume 92.4 fL (80.0-100.0); Mean Corpuscular HGB Conc 31.4 g/dL (31.0-36.0); Mean Platelet Volume 11.3 fL (7.4-10.4); Platelet Count 159 K/mcL (140-440); RBC 4.59 M/mcL (4.63-6.08); Red Cell Distribution Width 14.6 % (11.5-14.5); WBC 8.5 K/mcL (4.50-11.00)
[2020-02-23 06:53] LABS: ALT/SGPT 17 U/l (0-40); AST/SGOT 16 U/l (0-37); Albumin 3.1 gm/dL (3.2-5.2); Albumin/Globulin Ratio 0.8 (1.0-2.3); Alkaline Phosphatase 89 U/L (39-117); Bilirubin,Direct < 0.2 mg/dL (0.0-0.3); Bilirubin,Total 0.6 mg/dL (0.0-1.0); Blood Urea Nitrogen 12 mg/dl (8-23); Calcium 8.4 mg/dl (8.6-10.4); Carbon Dioxide 25 mmol/L (22-30); Chloride 102 mmol/L (96-108); Globulin 3.8 gm/dL (2.2-3.7); Glomerular Filtration Rate 75; Glucose 89 mg/dL (70-105); Lactate Dehydrogenase 213 U/L (94-250); Triglycerides 107 mg/dl (<150); Uric Acid 5.8 mg/dL (2.5-8.0)
[2020-02-23 06:54] LABS: Phosphorous 2.3 mg/dL (2.7-4.5)
[2020-02-23 07:28] LABS: Band Neutrophils % 1 % (0-10); Eosinophils % (Manual) 3 % (0-7); Hypochromasia 1+ (NONE SEEN); Lymphocytes % 6 % (15-49); Monocytes % (Manual) 6 % (1-12); Platelet Estimate NORMAL (NORMAL); RBC Morphology ABNORMAL (NORMAL); Segmented Neutrophils % 84 % (38-78)
[2020-02-23] MEDS: ACETAMINOPHEN 325 MG TABLET PO PRN ×3 (07:40→23:29)
[2020-02-23] MEDS: DOCUSATE SODIUM 100 MG CAPSULE PO SCH ×2 (09:09→20:09)
[2020-02-23] MEDS: cefTRIAXone 2 GM in DEXTROSE 5% IN WATER 50 ML IV SCH (09:11)
[2020-02-23] MEDS: MULTIVIT,THER IRON,CA,FA & MIN 1 TABLET PO SCH (09:12)
[2020-02-23] MEDS: HEPARIN 5,000 UNIT/ML VIAL SQ SCH ×2 (09:12→23:34)
[2020-02-23] MEDS: METOPROLOL TARTRATE 25 MG TABLET PO SCH (09:12)
--- NOTE | 2020-02-23 10:03 | Internal Med Progress Note ---
SUBJECTIVE Subjective Patient information: Note initiated : 02/23/20 at 10:00 am Service Date, if different from initiated Date: [] Patient: Gab Solitario a 74 y/o M admitted on 02/21/20 for UTI, sob, fever. Chief Complaint: [] History of present illness: Mr. Solitario is a 74 year old M presents from minor care for symptoms of weakness and fever 103.5 along with shaking chills. He has associated difficulty voiding. Symptoms have been progressing over the last couple of days. No associated diarrhea, headache neck stiffness or photophobia. He does endorse to cough. Quit smoking recently. Denies exposure to sick contacts. Initial workup revealed WBC 23K, CT abd pelvis- unremarkable except for enlarged prostate. UA pyuria, nitrites. COVID pending, INR 3.5 on Coumadin Patient was promptly started on vanco/zosyn in ED after cultures were drawn. Hospitalist service consulted for admission At the time evaluation patient is anxious and short of breath. Endorses to shaking chills. Symptoms have been ongoing for 48 hours. Endorses history as above. 02/21-patient clinically improved however experiencing diarrhea. Feels bloated. White count improved to 15,000 from 21. No overnight fever chills. Improving endorgan dysfunction with improved creatinine down from 1.3-1 8-patient doing well. Diarrhea improving. C. difficile negative. White count down to 8.5 from 21. Complains of shaking chills but no overnight fever on stable hemodynamics. Continuing antibiotic coverage. Cultures negative so far, creatinine down to 1. Constitutional Vitals: Vital Signs Temp Pulse Resp BP Pulse Ox 98.2 F 61 17 143/52 95 02/23/20 08:00 02/23/20 09:01 02/23/20 09:01 02/23/20 09:01 02/23/20 09:01 Period Temp Pulse Resp BP Sys/Perez Pulse Ox Last 24 Hr 97.4 F-98.7 F 54-69 14-32 142-185/52-126 92-100 Intake and Output 02/22/20 02/23/20 02/23/20 21:59 05:59 13:59 Intake Total 1030 340 Output Total 350 600 350 Balance 680 -260 -350 Weight 129.365 kg alert oriented Nonlabored breathing No anxiety No telemetry events Intake & Output: Intake & Output 02/22/20 02/23/20 02/23/20 21:59 05:59 13:59 Intake Total 1030 340 Output Total 350 600 350 Balance 680 -260 -350 Weight 129.365 kg Intake: IV 1030 Sodium Chloride 0.9% 1,000 ml @ 980 50 mls/hr IV .Q20H [facility] Rx#: [id number] Rocephin 2 gm In Dextrose 5% in 50 Water 50 ml @ 100 mls/hr IV Q24H [facility] Rx#:[id number] Oral 340 Output: Void Amount 200 600 350 Stool 150 Other: Urine Appearance Clear Urine Color Dark Stacie Urine Odor Normal Stool Size Small Small Stool Color Brown Brown Stool Consistency Liquid Soft Loose # Voids 1 # Bowel Movements 1 1 1 OBJ DATA Labs CBC & Chem 7: 02/23/20 04:19 02/23/20 04:18 Labs: Abnormal Lab Results 02/23/20 02/23/20 02/22/20 04:19 04:18 04:48 WBC RBC 4.59 L Hgb 13.3 L Hct RDW 14.6 H MPV 11.3 H Gran % Lymph % (Auto) Gran # Lymph # (Auto) [place] # (Auto) Seg Neutrophils % 84 H Lymphocytes % 6 L Hypochromasia 1+ A PT INR Chloride Creatinine Glucose 113 H Calcium 8.4 L 8.2 L Phosphorus 2.3 L 2.2 L Magnesium 2.6 H Total Bilirubin Albumin 3.1 L 3.0 L Globulin 3.8 H Albumin/Globulin Ratio 0.8 L 0.8 L Urine Protein Urine Occult Blood Urine Nitrate Urine Urobilinogen Ur Leukocyte Esterase Urine WBC Urine Bacteria 02/22/20 02/21/20 02/21/20 04:48 18:00 13:48 WBC 15.2 H RBC 4.39 L Hgb 12.8 L Hct 39.9 L RDW 14.6 H MPV 11.6 H Gran % Lymph % (Auto) Gran # Lymph # (Auto) [place] # (Auto) Seg Neutrophils % 91 H Lymphocytes % 4 L Hypochromasia PT INR Chloride 95 L Creatinine 1.3 H Glucose 137 H Calcium Phosphorus Magnesium Total Bilirubin 1.1 H Albumin Globulin Albumin/Globulin Ratio Urine Protein 30 A Urine Occult Blood 0.03 A Urine Nitrate Pos A Urine Urobilinogen 4.0 A Ur Leukocyte Esterase 250 A Urine WBC 53 H Urine Bacteria Many A 02/21/20 02/21/20 13:48 13:48 WBC 21.2 H RBC Hgb 13.5 L Hct RDW 15.0 H MPV 11.8 H Gran % 89.4 H Lymph % (Auto) 3.4 L Gran # 18.91 H Lymph # (Auto) 0.73 L [place] # (Auto) 1.38 H Seg Neutrophils % Lymphocytes % Hypochromasia PT 35.3 H INR 3.5 H Chloride Creatinine Glucose Calcium Phosphorus Magnesium Total Bilirubin Albumin Globulin Albumin/Globulin Ratio Urine Protein Urine Occult Blood Urine Nitrate Urine Urobilinogen Ur Leukocyte Esterase Urine WBC Urine Bacteria Meds: Medications Acetaminophen (Tylenol) 650 mg PO Q4-6HP PRN; Protocol PRN Reason: Per Pain Protocol/Fever > 101 Last Admin: 02/23/20 07:40 Dose: 650 mg Documented by: Bisacodyl (Dulcolax) 10 mg CO Q2-3DAYS PRN PRN Reason: Constipation Docusate Sodium (Colace) 100 mg PO BID [facility] Last Admin: 02/23/20 09:09 Dose: Not Given Documented by: Heparin Sodium (Porcine) (Heparin) 5,000 unit SQ Q12 [facility] Last Admin: 02/23/20 09:12 Dose: 5,000 unit Documented by: Hydralazine HCl (Apresoline) 10 mg IV Q4-6HP PRN PRN Reason: Hypertension Last Admin: 02/22/20 17:34 Dose: 10 mg Documented by: Ceftriaxone Sodium 2 gm/ (Dextrose) 50 mls @ 100 mls/hr IV Q24H [facility]; Protocol Last Admin: 02/23/20 09:11 Dose: 100 mls/hr Documented by: Sodium Chloride (Sodium Chloride 0.9%) 1,000 mls @ 50 mls/hr IV .Q20H [facility] Stop: 02/24/20 08:57 Last Admin: 02/22/20 17:35 Dose: 50 mls/hr Documented by: Norepinephrine Bitartrate 16 (mg/ Sodium Chloride) 250 mls @ 9.375 mls/hr IV Q24H PRN; Protocol PRN Reason: map<65 Iron Carb/Multivit/[employer]/Folic Acid (Multivitamin W/Minerals) 1 tab PO DAILY [facility] Last Admin: 02/23/20 09:12 Dose: 1 tab Documented by: Melatonin (Melatonin 3mg Tablet) 3 mg PO HSP PRN PRN Reason: Insomnia Metoprolol Tartrate (Lopressor) 25 mg PO DAILY [facility] Last Admin: 02/23/20 09:12 Dose: 25 mg Documented by: Ondansetron HCl (Zofran Odt) 4 mg SL Q4-6HP PRN; Protocol PRN Reason: Nausea And Vomiting Ondansetron HCl (Zofran) 4 mg IV Q4-6HP PRN; Protocol PRN Reason: Nausea And Vomiting Polyethylene Glycol (Miralax) 17 gm PO DAILYP PRN PRN Reason: Constipation Senna/Docusate Sodium (Senna Plus Tablet) 1 tab PO HS [facility] Last Admin: 02/22/20 20:37 Dose: Not Given Documented by: Sodium Chloride (Saline Flush) 10 ml IV Q8 [facility] Last Admin: 02/23/20 05:48 Dose: 10 ml Documented by: A/P Narrative A/P Narrative: * Complicated UTI-no evidence of obstructive uropathy on imaging. clinically improved on antibiotic coverage. * Sepsis with endorgan dysfunction-clinically resolved * Acute kidney injury-creatinine improved from 1.3->1. * h/o DVT- coumadin. INR therapeutic * BPH On tamsulosin * HTN-held metoprolol until sepsis resolves * HLD- Statin * Prophylaxis- coumadin, INR therapeutic * Transfer to medical floor * Antibiotic coverage * PT OT nutrition support * Anticoagulation Coumadin dosing based on INR * Pre-existing medical condition management home meds except for antihypertensives Time Spent With Patient Time: Total time spent is greater than 50% in coordination of care (as documented) at patient's floor/unit and/or counseling patient: QUALITY VTE Deep Vein Thrombosis/Pulmonary Embolism Present on Admission: No
[2020-02-23] MEDS: 0.9 % SODIUM CHLORIDE 1,000 ML IV SCH (12:45)
[2020-02-23 16:20] LABS: INR 2.2 (0.9-1.1); Prothrombin Time 24.9 sec (11.9-14.5)
[2020-02-23] MEDS: SENNOSIDES/DOCUSATE SODIUM 1 TAB TABLET PO SCH (20:10)
[2020-02-24] MEDS: 0.9 % SODIUM CHLORIDE 10 ML SYRINGE IV SCH ×3 (05:58→21:19)
[2020-02-24 06:46] LABS: Hematocrit 40.7 % (40.1-51.0); Hemoglobin 13.1 g/dL (13.7-17.5); Mean Cell Volume 91.3 fL (80.0-100.0); Mean Corpuscular HGB Conc 32.2 g/dL (31.0-36.0); Mean Platelet Volume 11.1 fL (7.4-10.4); Platelet Count 169 K/mcL (140-440); RBC 4.46 M/mcL (4.63-6.08); Red Cell Distribution Width 14.5 % (11.5-14.5); WBC 6.4 K/mcL (4.50-11.00)
[2020-02-24] MEDS: ACETAMINOPHEN 325 MG TABLET PO PRN ×2 (06:49→18:54)
[2020-02-24 06:51] LABS: INR 1.7 (0.9-1.1); Prothrombin Time 20.1 sec (11.9-14.5)
[2020-02-24] MEDS: METOPROLOL TARTRATE 25 MG TABLET PO SCH ×2 (06:53→08:42)
[2020-02-24 07:15] LABS: Bilirubin,Direct < 0.2 mg/dL (0.0-0.3); Chloride 104 mmol/L (96-108)
[2020-02-24 07:18] LABS: ALT/SGPT 19 U/l (0-40); AST/SGOT 18 U/l (0-37); Albumin 2.9 gm/dL (3.2-5.2); Albumin/Globulin Ratio 0.8 (1.0-2.3); Alkaline Phosphatase 85 U/L (39-117); Bilirubin,Total 0.3 mg/dL (0.0-1.0); Blood Urea Nitrogen 10 mg/dl (8-23); Calcium 8.7 mg/dl (8.6-10.4); Carbon Dioxide 22 mmol/L (22-30); Globulin 3.8 gm/dL (2.2-3.7); Glomerular Filtration Rate 75; Glucose 86 mg/dL (70-105); Lactate Dehydrogenase 281 U/L (94-250); Phosphorous 3.3 mg/dL (2.7-4.5); Triglycerides 100 mg/dl (<150); Uric Acid 5.4 mg/dL (2.5-8.0)
[2020-02-24 08:31] LABS: Eosinophils % (Manual) 4 % (0-7); Lymphocytes % 20 % (15-49); Monocytes % (Manual) 4 % (1-12); Platelet Estimate NORMAL (NORMAL); RBC Morphology NORMAL (NORMAL); Segmented Neutrophils % 72 % (38-78)
[2020-02-24] MEDS: cefTRIAXone 2 GM in DEXTROSE 5% IN WATER 50 ML IV SCH (08:33)
[2020-02-24] MEDS: MULTIVIT,THER IRON,CA,FA & MIN 1 TABLET PO SCH (08:37)
[2020-02-24] MEDS: HEPARIN 5,000 UNIT/ML VIAL SQ SCH ×2 (08:37→21:16)
[2020-02-24] MEDS: DOCUSATE SODIUM 100 MG CAPSULE PO SCH ×2 (08:42→21:16)
--- NOTE | 2020-02-24 12:12 | Internal Med Progress Note ---
SUBJECTIVE Subjective Patient information: Note initiated : 02/24/20 at 12:09 pm Service Date, if different from initiated Date: [] Patient: Gab Solitario a 74 y/o M admitted on 02/21/20 for UTI, sob, fever. Chief Complaint: [] History of present illness: Mr. Solitario is a 74 year old M presents from [facility] care for symptoms of weakness and fever 103.5 along with shaking chills. He has associated difficulty voiding. Symptoms have been progressing over the last couple of days. No associated diarrhea, headache neck stiffness or photophobia. He does endorse to cough. Quit smoking recently. Denies exposure to sick contacts. Initial workup revealed WBC 23K, CT abd pelvis- unremarkable except for enlarged prostate. UA pyuria, nitrites. COVID pending, INR 3.5 on Coumadin Patient was promptly started on vanco/zosyn in ED after cultures were drawn. Hospitalist service consulted for admission At the time evaluation patient is anxious and short of breath. Endorses to shaking chills. Symptoms have been ongoing for 48 hours. Endorses history as above. 8-patient clinically improved however experiencing diarrhea. Feels bloated. White count improved to 15,000 from 21. No overnight fever chills. Improving endorgan dysfunction with improved creatinine down from 1.3-1 8/-patient doing well. Diarrhea improving. C. difficile negative. White count down to 8.5 from 21. Complains of shaking chills but no overnight fever on stable hemodynamics. Continuing antibiotic coverage. Cultures negative so far, creatinine down to 1. 8/3-patient now in A. fib with RVR. He is very puny and weak and fatigued. On beta-david. White count downtrending, T-max 98.1. Continue cardiac monitoring and use as needed beta-david for rate control measures. Start physical therapy. Anticipate discharge in 24 to 48 hours pending. Constitutional Vitals: Vital Signs Temp Pulse Resp BP Pulse Ox 98.1 F 105 H 22 162/98 98 02/24/20 08:02 02/24/20 10:02 02/24/20 11:01 02/24/20 11:01 02/24/20 11:01 Period Temp Pulse Resp BP Sys/Perez Pulse Ox Last 24 Hr 97.8 F-98.4 F 56-105 14-29 126-193/55-115 87-98 Intake and Output 02/23/20 02/24/20 02/24/20 21:59 05:59 13:59 Intake Total 50 1600 Output Total 550 650 875 Balance -500 650 725 Weight 128.593 kg Alert oriented nonlabored breathing Anxious Feels fatigued No lymphedema Telemetry A. fib Intake & Output: Intake & Output 02/23/20 02/24/20 02/24/20 21:59 05:59 13:59 Intake Total 50 1600 Output Total 550 650 875 Balance -500 -650 725 Weight 128.593 kg Intake: IV 50 Rocephin 2 gm In Dextrose 5% in 50 Water 50 ml @ 100 mls/hr IV Q24H [facility] Rx#:[id number] Oral 1600 Output: Void Amount 550 650 875 # of times incontinent of urine 0 Other: Meal Breakfast Percent of Meal Consumed 100% Feeding Ability Independent Urine Appearance Clear Clear Urine Color Dark Yellow Dark Yellow Dark Stacie Urine Odor Normal Normal Stool Size Small Moderate Stool Color Brown Brown Black Stool Consistency Soft Soft Loose Liquid Loose # Voids 1 OBJ DATA Labs CBC & Chem 7: 02/24/20 04:15 02/24/20 04:15 Labs: Abnormal Lab Results 02/24/20 02/24/20 02/24/20 04:15 04:15 04:15 WBC RBC 4.46 L Hgb 13.1 L Hct RDW MPV 11.1 H Gran % Lymph % (Auto) Gran # Lymph # (Auto) [place] # (Auto) Seg Neutrophils % Lymphocytes % Hypochromasia PT 20.1 H INR 1.7 H Chloride Creatinine Glucose Calcium Phosphorus Magnesium 2.8 H Total Bilirubin Lactate Dehydrogenase 281 H Albumin 2.9 L Globulin 3.8 H Albumin/Globulin Ratio 0.8 L Urine Protein Urine Occult Blood Urine Nitrate Urine Urobilinogen Ur Leukocyte Esterase Urine WBC Urine Bacteria 02/23/20 02/23/20 02/23/20 15:46 04:19 04:18 WBC RBC 4.59 L Hgb 13.3 L Hct RDW 14.6 H MPV 11.3 H Gran % Lymph % (Auto) Gran # Lymph # (Auto) [place] # (Auto) Seg Neutrophils % 84 H Lymphocytes % 6 L Hypochromasia 1+ A PT 24.9 H INR 2.2 H Chloride Creatinine Glucose Calcium 8.4 L Phosphorus 2.3 L Magnesium 2.6 H Total Bilirubin Lactate Dehydrogenase Albumin 3.1 L Globulin 3.8 H Albumin/Globulin Ratio 0.8 L Urine Protein Urine Occult Blood Urine Nitrate Urine Urobilinogen Ur Leukocyte Esterase Urine WBC Urine Bacteria 02/22/20 02/22/20 02/21/20 04:48 04:48 18:00 WBC 15.2 H RBC 4.39 L Hgb 12.8 L Hct 39.9 L RDW 14.6 H MPV 11.6 H Gran % Lymph % (Auto) Gran # Lymph # (Auto) [place] # (Auto) Seg Neutrophils % 91 H Lymphocytes % 4 L Hypochromasia PT INR Chloride Creatinine Glucose 113 H Calcium 8.2 L Phosphorus 2.2 L Magnesium Total Bilirubin Lactate Dehydrogenase Albumin 3.0 L Globulin Albumin/Globulin Ratio 0.8 L Urine Protein 30 A Urine Occult Blood 0.03 A Urine Nitrate Pos A Urine Urobilinogen 4.0 A Ur Leukocyte Esterase 250 A Urine WBC 53 H Urine Bacteria Many A 02/21/20 02/21/20 02/21/20 13:48 13:48 13:48 WBC 21.2 H RBC Hgb 13.5 L Hct RDW 15.0 H MPV 11.8 H Gran % 89.4 H Lymph % (Auto) 3.4 L Gran # 18.91 H Lymph # (Auto) 0.73 L [place] # (Auto) 1.38 H Seg Neutrophils % Lymphocytes % Hypochromasia PT 35.3 H INR 3.5 H Chloride 95 L Creatinine 1.3 H Glucose 137 H Calcium Phosphorus Magnesium Total Bilirubin 1.1 H Lactate Dehydrogenase Albumin Globulin Albumin/Globulin Ratio Urine Protein Urine Occult Blood Urine Nitrate Urine Urobilinogen Ur Leukocyte Esterase Urine WBC Urine Bacteria Meds: Medications Acetaminophen (Tylenol) 650 mg PO Q4-6HP PRN; Protocol PRN Reason: Per Pain Protocol/Fever > 101 Last Admin: 02/24/20 06:49 Dose: 650 mg Documented by: Bisacodyl (Dulcolax) 10 mg MA Q2-3DAYS PRN PRN Reason: Constipation Docusate Sodium (Colace) 100 mg PO BID [facility] Last Admin: 02/24/20 08:42 Dose: Not Given Documented by: Heparin Sodium (Porcine) (Heparin) 5,000 unit SQ Q12 [facility] Last Admin: 02/24/20 08:37 Dose: 5,000 unit Documented by: Hydralazine HCl (Apresoline) 10 mg IV Q4-6HP PRN PRN Reason: Hypertension Last Admin: 02/22/20 17:34 Dose: 10 mg Documented by: Ceftriaxone Sodium 2 gm/ (Dextrose) 50 mls @ 100 mls/hr IV Q24H [facility]; Protocol Last Admin: 02/24/20 08:33 Dose: 100 mls/hr Documented by: Norepinephrine Bitartrate 16 (mg/ Sodium Chloride) 250 mls @ 9.375 mls/hr IV Q24H PRN; Protocol PRN Reason: map<65 Iron Carb/Multivit/Nuclear Equipment Operator/Folic Acid (Multivitamin W/Minerals) 1 tab PO DAILY [facility] Last Admin: 02/24/20 08:37 Dose: 1 tab Documented by: Melatonin (Melatonin 3mg Tablet) 3 mg PO HSP PRN PRN Reason: Insomnia Metoprolol Tartrate (Lopressor) 25 mg PO DAILY [facility] Last Admin: 02/24/20 08:42 Dose: Not Given Documented by: Ondansetron HCl (Zofran Odt) 4 mg SL Q4-6HP PRN; Protocol PRN Reason: Nausea And Vomiting Ondansetron HCl (Zofran) 4 mg IV Q4-6HP PRN; Protocol PRN Reason: Nausea And Vomiting Polyethylene Glycol (Miralax) 17 gm PO DAILYP PRN PRN Reason: Constipation Senna/Docusate Sodium (Senna Plus Tablet) 1 tab PO HS [facility] Last Admin: 02/23/20 20:10 Dose: Not Given Documented by: Sodium Chloride (Saline Flush) 10 ml IV Q8 [facility] Last Admin: 02/24/20 05:58 Dose: Not Given Documented by: Warfarin Sodium (Coumadin Per Pharmacy) 1 order PO DAILY@1400 [facility] Last Admin: 02/23/20 17:04 Dose: Not Given Documented by: Warfarin Sodium (Coumadin) 7.5 mg PO ONCE@1400 ONE Stop: 02/24/20 14:01 A/P Narrative A/P Narrative: * Complicated UTI-no evidence of obstructive uropathy on imaging. clinically improved on antibiotic coverage. * Sepsis with endorgan dysfunction-clinically resolved * A. fib with RVR-sepsis endorgan dysfunction. Continue rate control measures. * Acute kidney injury-creatinine improved from 1.3->1. * h/o DVT- coumadin. * BPH On tamsulosin * HTN-restart metoprolol * HLD- Statin * Prophylaxis- coumadin, INR therapeutic * Transfer to medical floor * Antibiotic coverage * Rate control measures * PT OT nutrition support * Coumadin dosing based on INR * Pre-existing medical condition management home meds except for antihypertensives Time Spent With Patient Time: Total time spent is greater than 50% in coordination of care (as documented) at patient's floor/unit and/or counseling patient: QUALITY VTE Deep Vein Thrombosis/Pulmonary Embolism Present on Admission: No
[2020-02-24] MEDS ORDERED: WARFARIN 5 MG TABLET PO SCH (12:15)
[2020-02-24] MEDS ORDERED: BISACODYL 10 MG SUPP.RECT PR PRN (13:24)
[2020-02-24] MEDS ORDERED: hydrALAZINE 20 MG/ML VIAL IV PRN (13:24)
[2020-02-24] MEDS ORDERED: 0.9 % SODIUM CHLORIDE 250 ML IV SCH (13:24)
[2020-02-24] MEDS ORDERED: NOREPINEPHRINE BITARTRATE 16 MG in 0.9 % SODIUM CHLORIDE 234 ML IV PRN (13:24)
[2020-02-24] MEDS ORDERED: ONDANSETRON 4 MG/2 ML VIAL IV PRN (13:24)
[2020-02-24] MEDS ORDERED: MELATONIN 3 MG TABLET PO PRN (13:24)
[2020-02-24] MEDS ORDERED: ONDANSETRON 4 MG ODT TABLET SL PRN (13:24)
[2020-02-24] MEDS ORDERED: POLYETHYLENE GLYCOL 3350 17 GM PACKET PO PRN (13:24)
[2020-02-24] MEDS ORDERED: WARFARIN 7.5 MG TABLET PO ONE ×2 (14:00)
[2020-02-24] MEDS ORDERED: SENNOSIDES/DOCUSATE SODIUM 1 TAB TABLET PO SCH (21:00)
[2020-02-24] MEDS ORDERED: FUROSEMIDE 20 MG TABLET PO SCH (21:00)
[2020-02-24] MEDS: FUROSEMIDE 20 MG TABLET PO SCH (21:16)
[2020-02-24] MEDS ORDERED: METOPROLOL TARTRATE 5 MG/5 ML VIAL IV PRN (21:41)
[2020-02-25] MEDS: ACETAMINOPHEN 325 MG TABLET PO PRN (04:35)
--- NOTE | 2020-02-25 05:10 | XRay Report ---
CLINICAL INFORMATION: Follow-up possible lingular infiltrate COMPARISON: 02/21/2020 FINDINGS: Heart size, mediastinum and pulmonary vessels are normal. Small lingular infiltrate has almost cleared. No other pulmonary abnormalities. No effusions IMPRESSION: Near complete interval clearance in small left lingular infiltrate Interpreted and Authenticated by: Iraj Smith 02/25/20
[2020-02-25] MEDS: 0.9 % SODIUM CHLORIDE 10 ML SYRINGE IV SCH ×2 (05:57→13:45)
[2020-02-25 06:21] LABS: Hematocrit 37.7 % (40.1-51.0); Hemoglobin 12.3 g/dL (13.7-17.5); Mean Cell Volume 88.7 fL (80.0-100.0); Mean Corpuscular HGB Conc 32.6 g/dL (31.0-36.0); Mean Platelet Volume 10.5 fL (7.4-10.4); Platelet Count 187 K/mcL (140-440); RBC 4.25 M/mcL (4.63-6.08); Red Cell Distribution Width 14.5 % (11.5-14.5); WBC 7.1 K/mcL (4.50-11.00)
[2020-02-25 06:30] LABS: INR 1.4 (0.9-1.1)
[2020-02-25 06:42] LABS: ALT/SGPT 22 U/l (0-40); AST/SGOT 18 U/l (0-37); Albumin/Globulin Ratio 0.9 (1.0-2.3); Alkaline Phosphatase 67 U/L (39-117); Bilirubin,Direct < 0.2 mg/dL (0.0-0.3); Bilirubin,Total 0.2 mg/dL (0.0-1.0); Blood Urea Nitrogen 10 mg/dl (8-23); Calcium 8.4 mg/dl (8.6-10.4); Carbon Dioxide 27 mmol/L (22-30); Chloride 101 mmol/L (96-108); Globulin 3.4 gm/dL (2.2-3.7); Glomerular Filtration Rate 85; Glucose 112 mg/dL (70-105); Lactate Dehydrogenase 193 U/L (94-250); Phosphorous 3.3 mg/dL (2.7-4.5); Triglycerides 123 mg/dl (<150); Uric Acid 5.5 mg/dL (2.5-8.0)
[2020-02-25 07:30] LABS: Anisocytosis FEW (NONE SEEN); Band Neutrophils % 6 % (0-10); Basophils % (Manual) 1 % (0-2); Eosinophils % (Manual) 7 % (0-7); Lymphocytes % 20 % (15-49); Monocytes % (Manual) 4 % (1-12); Platelet Estimate NORMAL (NORMAL); RBC Morphology ABNORM (NORMAL); Reactive Lymphocytes 1 % (0-2); Segmented Neutrophils % 61 % (38-78)
[2020-02-25] MEDS ORDERED: POTASSIUM CHLORIDE 10 MEQ TABLET PO SCH ×2 (08:00)
[2020-02-25] MEDS ORDERED: cefTRIAXone 2 GM in DEXTROSE 5% IN WATER 50 ML IV SCH (09:00)
[2020-02-25] MEDS ORDERED: TAMSULOSIN 0.4 MG CAPSULE PO SCH ×2 (09:00)
[2020-02-25] MEDS ORDERED: ATORVASTATIN 20 MG TABLET PO SCH ×2 (09:00)
[2020-02-25] MEDS ORDERED: METOPROLOL TARTRATE 25 MG TABLET PO SCH ×3 (09:00)
[2020-02-25] MEDS ORDERED: MULTIVIT,THER IRON,CA,FA & MIN 1 TABLET PO SCH ×3 (09:00)
[2020-02-25] MEDS: HEPARIN 5,000 UNIT/ML VIAL SQ SCH (09:17)
[2020-02-25] MEDS: DOCUSATE SODIUM 100 MG CAPSULE PO SCH (09:17)
[2020-02-25] MEDS: FUROSEMIDE 20 MG TABLET PO SCH (09:17)
[2020-02-25] MEDS: BUTALB/ACETAMINOPHEN/CAFFEINE 1 TABLET PO PRN ×2 (09:18→13:44)
--- NOTE | 2020-02-25 10:35 | Discharge Summary ---
Discharge Provider Provider Patient information: Note initiated : 02/25/20 at 10:31 am Service Date, if different from initiated Date: [] Patient: Gab Solitario a 74 y/o M admitted on 02/21/20 for UTI, sob, fever. Discharge diagnosis * Complicated UTI-clinically improved. Likely secondary to BPH/urinary retention/incomplete bladder emptying. Continue follow-up with care physician and urology as outpatient. Continue additional 5 days antibiotics. * Severe sepsis with endorgan dysfunction-clinically resolved * A. fib with RVR-sepsis endorgan dysfunction. Rate controlled, on anticoagulation on Coumadin * Acute kidney injury-creatinine improved from 1.3->1. * History of DVT continue Coumadin * BPH continue on tamsulosi, follow-up with urology as outpatient * HTN-continue metoprolol * HLD- Statin Brief hospital course History of present illness: Mr. Solitario is a 74 year old M presents from [facility] care for symptoms of weakness and fever 103.5 along with shaking chills. He has associated difficulty voiding. Symptoms have been progressing over the last couple of days. No associated diarrhea, headache neck stiffness or photophobia. He does endorse to cough. Quit smoking recently. Denies exposure to sick contacts. Initial workup revealed WBC 23K, CT abd pelvis- unremarkable except for enlarged prostate. UA pyuria, nitrites. COVID pending, INR 3.5 on Coumadin Patient was promptly started on vanco/zosyn in ED after cultures were drawn. Hospitalist service consulted for admission At the time evaluation patient is anxious and short of breath. Endorses to shaking chills. Symptoms have been ongoing for 48 hours. Endorses history as above. 8-patient clinically improved however experiencing diarrhea. Feels bloated. White count improved to 15,000 from 21. No overnight fever chills. Improving endorgan dysfunction with improved creatinine down from 1.3-1 8/2-patient doing well. Diarrhea improving. C. difficile negative. White count down to 8.5 from 21. Complains of shaking chills but no overnight fever on stable hemodynamics. Continuing antibiotic coverage. Cultures negative so far, creatinine down to 1. 8/3-patient now in A. fib with RVR. He is very puny and weak and fatigued. On beta-david. White count downtrending, T-max 98.1. Continue cardiac monitoring and use as needed beta-david for rate control measures. Start physical therapy. Anticipate discharge in 24 to 48 hours pending. 02/24-patient doing well. No overnight events. Discharging home with advised to continue antibiotics for additional 5 days. Follow-up with urology for management of BPH and urine retention. Continue Flomax. Discharge instructions as below Date of admission: 02/21/20 20:55 Primary care physician: Jonah Fuller Consults: 02/21/20 Consult to Physician [CONS] Stat Comment: Consulting Provider: El Rosales Reason For Exam: Physician to Consult Discharge Meds Discharge Medications Home Medications multivitamin with minerals 1 tab PO QDAY tab 11/06/18 [History Confirmed 02/21/20 Last Taken Unknown] warfarin 5 mg tablet 5 mg PO .COMPLEX #100 tab 05/31/19 [Rx Confirmed 02/21/20 Last Taken Unknown] tamsulosin 0.4 mg capsule 0.8 mg PO QDAY #180 cap 10/14/19 [Rx Confirmed 02/21/20 Last Taken Unknown] furosemide 20 mg tablet 20 mg PO BID #180 tab 12/12/19 [Rx Confirmed 02/21/20 Last Taken Unknown] potassium chloride 10 mEq capsule,extended release 10 meq PO QDAY #90 cap 12/12/19 [Rx Confirmed 02/21/20 Last Taken Unknown] atorvastatin 20 mg PO QAM 02/21/20 [History Confirmed 02/21/20 Last Taken Unknown] metoprolol tartrate 25 mg PO QAM 02/21/20 [History Confirmed 02/21/20 Last Taken Unknown] mbjkhuwkcq-oppviviazqsrk-erfb 1 tab PO Q4HP PRN #10 tab 02/25/20 [Rx Last Taken Unknown] cefdinir 300 mg PO BID #10 cap 02/25/20 [Rx Last Taken Unknown] COURSE Time Spent with Patient Time attestation: Total time spent providing and/or coordinating discharge services: EXAM Constitutional Vitals: Temp Pulse Resp BP Pulse Ox 98.6 F 64 20 146/70 97 02/25/20 07:32 02/25/20 07:46 02/25/20 07:46 02/25/20 07:46 02/25/20 07:46 Discharge Data Data Completed and Pending Labs on day of discharge: Labs from last 24 hours 08/11/1002/25/20 02/25/20 05:35 05:35 05:35 WBC 7.1 RBC 4.25 L Hgb 12.3 L Hct 37.7 L MCV 88.7 MCH 28.9 MCHC 32.6 RDW 14.5 Plt Count 187 MPV 10.5 H Total Counted 100 Seg Neutrophils % 61 Band Neutrophils % 6 Lymphocytes % 20 Monocytes % (Manual) 4 Eosinophils % (Manual) 7 Basophils % (Manual) 1 Reactive Lymphocytes 1 Platelet Estimate Normal RBC Morphology Abnorm A Anisocytosis Few A PT 18.0 H INR 1.4 H Sodium 138 Potassium 4.1 Chloride 101 Carbon Dioxide 27 Anion Gap 10.0 BUN 10 Creatinine 0.9 GFR Calculation 85 Glucose 112 H Uric Acid 5.5 Calcium 8.4 L Phosphorus 3.3 Magnesium 2.2 Total Bilirubin 0.2 Direct Bilirubin < 0.2 GGT 17 AST 18 ALT 22 Alkaline Phosphatase 67 Lactate Dehydrogenase 193 Troponin T Total Protein 6.4 Albumin 3.0 L Globulin 3.4 Albumin/Globulin Ratio 0.9 L Triglycerides 123 02/24/20 21:02 WBC RBC Hgb Hct MCV MCH MCHC RDW Plt Count MPV Total Counted Seg Neutrophils % Band Neutrophils % Lymphocytes % Monocytes % (Manual) Eosinophils % (Manual) Basophils % (Manual) Reactive Lymphocytes Platelet Estimate RBC Morphology Anisocytosis PT INR Sodium Potassium Chloride Carbon Dioxide Anion Gap BUN Creatinine GFR Calculation Glucose Uric Acid Calcium Phosphorus Magnesium Total Bilirubin Direct Bilirubin GGT AST ALT Alkaline Phosphatase Lactate Dehydrogenase Troponin T < 0.01 Total Protein Albumin Globulin Albumin/Globulin Ratio Triglycerides Preliminary micro results at discharge 02/21/20 14:16 Blood Culture - Preliminary Blood 02/21/20 14:07 Blood Culture - Preliminary Blood Discharge Plan Patient/Caregiver Discharge Instructions Activity: increase activity as tolerated Diet: Regular Diet Activity Restrictions/Additional Instructions: Follow-up PCP in 5 to 7 days return to ER if worsening dysuria/fever chills Follow-up with urology for evaluation of urine retention/proximal enlargement Continue antibiotic for additional 5 days Prescriptions: New cefdinir 300 MG capsule 300 mg PO BID Qty: 10 RF: 0 [id number]-balncklgjmrax-mnhk 50-325-40 mg Tablet 1 tab PO Q4HP PRN (Reason: Headache) Qty: 10 RF: 0 Continued warfarin 5 mg tablet 5 mg PO .COMPLEX Qty: 100 RF: 12 furosemide 20 mg tablet 20 mg PO BID Qty: 180 RF: 2 potassium chloride 10 mEq capsule, extended release 10 meq PO QDAY Qty: 90 RF: 0 multivitamin with minerals tablet tablet 1 tab PO QDAY RF: 0 atorvastatin 20 mg tablet 20 mg PO QAM RF: 0 metoprolol tartrate 25 mg tablet 25 mg PO QAM RF: 0 tamsulosin 0.4 mg capsule 0.8 mg PO QDAY Qty: 180 RF: 5 Follow Up Plan Follow up with: Jonah Fuller ARNP [Primary Care Provider] - Patient Disposition: Home, Self-Care Prognosis: Fair Rehab Potential: Good I certify that the patient requires SNF services: No Overall status at discharge: patient is progressing back to baseline Discharge Orders: Discharge Order (Routine); Ordered 02/25/20 Ordered By: El CHILDS VTE Deep Vein Thrombosis/Pulmonary Embolism Present on Admission: No
[2020-02-25] MEDS ORDERED: WARFARIN 7.5 MG TABLET PO ONE (14:00)
== END 2020-02-25 18:10 | disposition home or self-care (01) | DRG 872 ==
LOC: ED 13:03 → ICU 20:55 → MEDSUR 02-24 17:55
PROVIDERS: ADMIT Internal Medicine; ATTEND Internal Medicine